=== PATIENT | male | born 1965 | race Caucasian/White ===

== ENCOUNTER 2016-05-10 21:32 | Emergency (ER) | payer BC ==
[2016-05-10 21:46] VITALS: TEMP 98.6; BMI 33.9
[2016-05-10] MEDS ORDERED: FLUORESCEIN SODIUM 1 MG APP OD ONE (21:53)
[2016-05-10] MEDS ORDERED: PROPARACAINE 0.5% OPHTH SOLN 15 ML BOTTLE OD ONE (21:53)
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
[2016-05-10 22:58] VITALS: BP 143/100; PULSE 77
[2016-05-11] MEDS ORDERED: GENTAMICIN 0.3% OPHTH SOLN 5 ML BOTTLE OD ONE (22:15)
== END 2016-05-10 22:50 | disposition short-term general hospital (02) ==
LOC: EDMC 21:32 → ED 22:50
DX: S05.00XA Injury of conjunctiva and corneal abrasion without foreign body, unspecified eye, initial encounter (principal); S05.7 Avulsion of eye; W22.8XXA Striking against or struck by other objects, initial encounter; Y93.9 Activity, unspecified
CPT/HCPCS: 70486; 99283; J3490